=== PATIENT | female | born 1980 | race Caucasian/White ===

== ENCOUNTER 2020-12-11 07:59 | Outpatient (RCR) | payer OTHER, SELFPAY ==
--- NOTE | 2020-12-13 07:54 | PTOPEVAL ---
Thank you for referring Kaylin Anne to [facility].? The patient is scheduled to be seen for therapy? __2__x/week for 10 visits. Please review, sign, date and return this plan of care JASON. I agree with and certify that the following plan of care is medically necessary. Referring Physician Date Admitting Provider: Attending Provider: Feng Harris M.D. Referring Provider: *PT Outpatient Evaluation Start: 12/11/20 08:04 Freq: Status: Active Protocol: Document 12/11/20 08:04 PAT (Rec: 12/11/20 09:07 PAT [id number]) Therapy Assessment Status Assessment Status Assessment Status Evaluation Evaluation Information Problem Diagnosis bilateral knee pain Onset 12/07/20 Subjective Information Pt. reports that in February she Query Text:As Reported By Patient/ began working out due to Family development of knee pain. Pt. reports that she had recently gotten . She states that she feels most pain with squatting and kneeling activities and describes pain in the front of the knee joints. She reports that pain has increased with recent weight gain due to . She reports that her goal for therapy is to reduce her knee pain. Prior Level of Function Activity Level (Last 3 Months) Occupation unemployed Hand Dominance Right Activity of Daily Living Ability Independent Indoor/Home Mobility Independent Community Mobility Independent Stairs Ability Independent Functional Cognition (Planning, Shopping Independent , Taking Medications) Cooking Yes Cleaning Yes Laundry Yes Shopping Yes Driving Yes Pain Assessment Timing of Pain Assessment Timing of Pain Assessment Pre-Treatment Pain Scale Pain Scale Used Numeric (1 - 10) Self Report Pain Assessment Bilateral Knee(s) Reported Pain Level 0 Pain Description Sharp Lowest Pain Intensity 0 Greatest Pain Intensity 8 Pain Aggravating Factors Exercise/Activity,Prolonged Position,Walking,Weight Bearing/Standing Pain Score Pain Score 0: Self Report Interventions Used Interventions Used By Clinicians Activity or
== END 2021-01-10 11:23 | disposition home or self-care (01) ==
LOC: CHSPT 07:59
PROVIDERS: PCP Family Medicine; Visit Provider Family Medicine
DX: M25.562 Pain in left knee (principal); M25.561 Pain in right knee
CPT/HCPCS: 97110; 97161; 97530